=== PATIENT | female | born 1995 | race Caucasian/White ===

== ENCOUNTER 2023-03-04 08:37 | Emergency (ER) | payer OTHER ==
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
[2023-03-04 10:22] VITALS: RESP 16
[2023-03-04 11:18] VITALS: BP 124/78; PULSE 85; TEMP 98.1
== END 2023-03-04 10:57 | disposition home or self-care (01) ==
LOC: EC 08:37
DX: S62.305A Unspecified fracture of fourth metacarpal bone, left hand, initial encounter for closed fracture (principal); S62.303A Unspecified fracture of third metacarpal bone, left hand, initial encounter for closed fracture; S20.211A Contusion of right front wall of thorax, initial encounter; V89.2XXA Person injured in unspecified motor-vehicle accident, traffic, initial encounter; Y92.410 Unspecified street and highway as the place of occurrence of the external cause
CPT/HCPCS: 29125; 71046; 99284